=== PATIENT | male | born 1950 | race Caucasian/White ===

== ENCOUNTER 2018-06-19 06:11 | Inpatient (IN) | payer OTHER ==
[~2018-06-19] VITALS: Ht 188 cm; Wt 127.0 kg
[2018-06-19 06:18] VITALS: Ht 188 cm; Wt 127.0 kg
[2018-06-19] MEDS ORDERED: CAPSAICIN42.5 GM (06:35)
[2018-06-19] MEDS ORDERED: MYCC TOP (06:36)
[2018-06-19] MEDS ORDERED: METFORMIN HCL1000 MG PO (06:45)
[2018-06-19] MEDS ORDERED: LISINOPRIL10 MG PO (06:46)
[2018-06-19] MEDS ORDERED: CARVEDILOL12.5 M1 PO (06:47)
[2018-06-19] MEDS ORDERED: ASMANEX TW110 MCG/Ac (06:47)
[2018-06-19] MEDS ORDERED: FUROSEMIDE20 MG PO (06:48)
[2018-06-19] MEDS ORDERED: LANTI SC (06:50)
[2018-06-19 07:05] LABS: BASOPHIL % 0.6 % (0-2); PLATELET COUNT 182 x10^3mcL (130-400); RED CELL DISTRIBUTION WIDTH 13.6 % (11.5-14.5)
[2018-06-19] MEDS ORDERED: ATORVASTATIN CA40 M1 PO (07:05)
[2018-06-19] MEDS ORDERED: ASSORTED FRUIT G4 GM PO (07:05)
[2018-06-19] MEDS ORDERED: APAP500 MG (07:06)
[2018-06-19] MEDS ORDERED: ASPIRIN ADULT L81 M5 PO (07:07)
[2018-06-19] MEDS ORDERED: XOPENEX1.25 MG/3 (07:07)
[2018-06-19] MEDS ORDERED: HUMULIN R100 U/1 M1 IV (07:08)
[2018-06-19] MEDS ORDERED: RELION HUMUL100 U/M2 IJ (07:09)
[2018-06-19 07:16] LABS: CALCIUM 8.9 mg/dL (8.5-10.1); CARBON DIOXIDE 27.3 mmol/L (21-32); CHLORIDE SERUM 105 mmol/L (98-107); CREATININE SERUM 0.9 mg/dL (0.7-1.3); GFR1 > 60 mL/min; GLUCOSE SERUM 177 mg/dL (74-106); POTASSIUM SERUM 4.2 mmol/L (3.5-5.1); SODIUM SERUM 141 mmol/L (136-145)
[2018-06-19 07:17] LABS: ALBUMIN 3.4 g/dL (3.4-5.0); ALKALINE PHOSPHATASE 95 U/L (46-116); ALT/SGPT 21 U/L (16-63); AST/SGOT 16 U/L (15-37); BILIRUBIN TOTAL 0.4 mg/dL (0.20-1.00); TOTAL PROTEIN, SERUM 7.1 g/dL (6.4-8.2)
[2018-06-19 09:46] VITALS: BP 160/76
[2018-06-19 11:00] LABS: MAGNESIUM 2.2 mg/dL (1.8-2.4)
[2018-06-19 11:02] LABS: CHOLESTEROL/HDL RATIO 2.8
[2018-06-19 13:05] VITALS: BP 158/69
[2018-06-19 15:27] LABS: microscopic required? NO
[2018-06-19 15:44] LABS: AMPHETAMINE QUAL UR NONE DETECTED (See below)
[2018-06-19 15:47] LABS: UA SPECIFIC GRAVITY 1.025 (1.005-1.035); urine erythrocyte NEGATIVE (NEGATIVE)
[2018-06-19 17:00] VITALS: BP 158/64
[2018-06-19 20:00] VITALS: BP 143/60
[2018-06-20 05:49] VITALS: BP 132/65
[2018-06-20 06:14] LABS: BASOPHIL % 0.2 % (0-2); PLATELET COUNT 159 x10^3mcL (130-400); RED CELL DISTRIBUTION WIDTH 13.3 % (11.5-14.5)
[2018-06-20 06:46] LABS: CALCIUM 8.5 mg/dL (8.5-10.1); CARBON DIOXIDE 26.1 mmol/L (21-32); CHLORIDE SERUM 100 mmol/L (98-107); GFR1 > 60 mL/min; GLUCOSE SERUM 227 mg/dL (74-106); POTASSIUM SERUM 3.8 mmol/L (3.5-5.1); SODIUM SERUM 135 mmol/L (136-145)
[2018-06-20 10:31] VITALS: BP 154/71
[2018-06-20 18:09] VITALS: BP 163/77
[2018-06-20 20:33] VITALS: BP 158/81
[2018-06-21 05:57] VITALS: BP 123/78
[2018-06-21 07:00] LABS: CARBON DIOXIDE 26.4 mmol/L (21-32); CHLORIDE SERUM 100 mmol/L (98-107); GFR1 > 60 mL/min; GLUCOSE SERUM 270 mg/dL (74-106); POTASSIUM SERUM 3.7 mmol/L (3.5-5.1); SODIUM SERUM 133 mmol/L (136-145)
[2018-06-21 07:17] LABS: BASOPHIL % 0 % (0-2); PLATELET COUNT 157 x10^3mcL (130-400); RED CELL DISTRIBUTION WIDTH 13.5 % (11.5-14.5)
[2018-06-21 09:27] VITALS: BP 159/79
[2018-06-21 13:17] VITALS: BP 140/69
[2018-06-21 16:51] VITALS: BP 132/72
[2018-06-21 21:03] VITALS: BP 125/67
[2018-06-22 05:31] VITALS: BP 132/63
[2018-06-22 06:58] LABS: CALCIUM 8.4 mg/dL (8.5-10.1); CARBON DIOXIDE 29.7 mmol/L (21-32); CHLORIDE SERUM 103 mmol/L (98-107); GFR1 > 60 mL/min; GLUCOSE SERUM 227 mg/dL (74-106); POTASSIUM SERUM 3.7 mmol/L (3.5-5.1); SODIUM SERUM 138 mmol/L (136-145)
[2018-06-22 07:03] LABS: BASOPHIL % 0.3 % (0-2); PLATELET COUNT 166 x10^3mcL (130-400); RED CELL DISTRIBUTION WIDTH 12.8 % (11.5-14.5)
[2018-06-22 08:54] VITALS: BP 120/59
[2018-06-22 13:42] VITALS: BP 115/63
[2018-06-22 17:54] VITALS: BP 147/75
[2018-06-22 21:15] VITALS: BP 122/64
[2018-06-23 05:48] VITALS: BP 143/69
[2018-06-23 06:15] LABS: BASOPHIL % 0.3 % (0-2); PLATELET COUNT 189 x10^3mcL (130-400); RED CELL DISTRIBUTION WIDTH 12.4 % (11.5-14.5)
[2018-06-23 06:27] LABS: CALCIUM 8.4 mg/dL (8.5-10.1); CARBON DIOXIDE 29.6 mmol/L (21-32); CHLORIDE SERUM 105 mmol/L (98-107); CREATININE SERUM 0.8 mg/dL (0.7-1.3); GFR1 > 60 mL/min; GLUCOSE SERUM 140 mg/dL (74-106); POTASSIUM SERUM 3.5 mmol/L (3.5-5.1); SODIUM SERUM 140 mmol/L (136-145)
[2018-06-23 09:23] VITALS: BP 142/64
[2018-06-23 12:20] VITALS: BP 126/66
[2018-06-23 12:59] VITALS: BP 126/66
[2018-06-23 17:51] VITALS: BP 140/59
== END 2018-06-23 19:32 | disposition other institution (70) | DRG 872 ==
LOC: ED 06:11 → DU 08:07
PROVIDERS: Emergency Medicine; Internal Medicine
DX: A41.9 Sepsis, unspecified organism (principal); I24.9 Acute ischemic heart disease, unspecified; S80.212A Abrasion, left knee, initial encounter; L08.9 Local infection of the skin and subcutaneous tissue, unspecified; E11.9 Type 2 diabetes mellitus without complications; I11.0 Hypertensive heart disease with heart failure; I50.9 Heart failure, unspecified; I25.10 Atherosclerotic heart disease of native coronary artery without angina pectoris; K21.9 Gastro-esophageal reflux disease without esophagitis; E78.5 Hyperlipidemia, unspecified; Z79.82 Long term (current) use of aspirin; Z79.4 Long term (current) use of insulin; X58.XXXA Exposure to other specified factors, initial encounter; Y92.9 Unspecified place or not applicable
CPT/HCPCS: 82962; 83880; A9500; C9113; J1815; J2270; J2785; J3370; J7040; J7050; Q0092; Q0163